=== PATIENT | female | born 1965 | race American Indian/Alaskan Native ===

== ENCOUNTER 2024-10-04 16:09 | Emergency (ER) | payer SELFPAY ==
[~2024-10-04] VITALS: Ht 157.5 cm; Wt 109.4 kg
[~2024-10-04 16:09] MED LIST: ASPI-611 PO; GLYB-97 PO; HCTZ25T PO; INSU100V36 SQ; LANTUS SQ; LOSA-415 PO; METF-436 PO
[2024-10-04 16:11] VITALS: BP 143/56; PULSE 96; TEMP 99.7; O2SAT 96
[2024-10-04 17:53] VITALS: RESP 18
[2024-10-04] MEDS ORDERED: FLUT16SP2 BOTHNARES (18:31)
[2024-10-04] MEDS ORDERED: [UNRECOGNIZED DRUG - CODE] PO (18:31)
[2024-10-04] MEDS ORDERED: ALBU18HF2 INH (18:31)
== END 2024-10-04 18:44 | disposition home or self-care (01) ==
LOC: ER 16:09
DX: J20.9 Acute bronchitis, unspecified (principal); F17.210 Nicotine dependence, cigarettes, uncomplicated; I10 Essential (primary) hypertension; E11.9 Type 2 diabetes mellitus without complications; Z90.710 Acquired absence of both cervix and uterus; Z90.49 Acquired absence of other specified parts of digestive tract; Z88.5 Allergy status to narcotic agent; Z88.8 Allergy status to other drugs, medicaments and biological substances; Z79.82 Long term (current) use of aspirin; Z79.52 Long term (current) use of systemic steroids; Z79.899 Other long term (current) drug therapy; Z79.4 Long term (current) use of insulin
CPT/HCPCS: 71045; 99283